=== PATIENT | female | born 1970 | race African-American/Black ===

== ENCOUNTER 2025-07-13 09:55 | Inpatient (IN) | payer SELFPAY ==
[~2025-07-13] VITALS: Ht 167.6 cm; Wt 43.1 kg
[2025-07-13 10:00] VITALS: O2SAT 100
[2025-07-13 10:36] LABS: BASOPHILS % 0.4 % (0.0-2.0); EOSINOPHILS % 0.0 % (0.0-5.0); HEMATOCRIT. 45.9 % (36.0-48.0); HEMOGLOBIN. 15.3 g/dL (12.0-16.0); LYMPHOCYTES % 9.5 % (20.0-50.0); MEAN PLATELET VOLUME 7.3 fl (7.4-10.4); MONOCYTES % 5.6 % (2.0-8.0); NEUTROPHILS % 84.5 % (40.0-76.0); PLATELET 257 x1000/uL (130-400); RED BLOOD CELL COUNT 4.55 mill/uL (4.2-5.4); RED CELL DISTRIBUTION WIDTH 13.7 % (11.6-14.6)
[2025-07-13 10:55] LABS: CREATININE 0.7 mg/dL (0.6-1.0); UREA NITROGEN BLOOD < 5 mg/dL (9-23)
[2025-07-13 10:56] LABS: TROPONIN I HIGH SENSITIVITY 13 ng/L (3.0-34)
[2025-07-13] MEDS: POTASSIUM CHLORIDE 20MEQ/PACKET PO NR (12:30)
[2025-07-13] MEDS ORDERED: ACETAMINOPHEN 325MG TABLET PO PRN ×2 (12:30)
[2025-07-13] MEDS ORDERED: IPRATROPIUM/ALBUTEROL 0.5-3(2.5)MG/3ML NEB HHN PRN (12:30)
[2025-07-13] MEDS ORDERED: CLONIDINE 0.1MG TABLET PO PRN (12:30)
[2025-07-13 12:59] LABS: PHOSPHORUS 3.6 mg/dL (2.5-4.9)
[2025-07-13 13:08] LABS: FOLIC ACID (FOLATE) SERUM 13.78 ng/mL (>5.38); VITAMIN B12 SERUM 781 pg/mL (211-911)
[2025-07-13] MEDS: BLOOD SUGAR DIAGNOSTIC STRIP TEST SCH (13:39)
[2025-07-13] MEDS: SODIUM CHLORIDE 0.9% 1,000 ML IV ONE (13:40)
[2025-07-13] MEDS: ONDANSETRON HCL 4MG/2ML INJ IV PRN (14:44)
[2025-07-13 15:00] VITALS: BP 144/89; PULSE 108; RESP 18; TEMP 36.4736
[2025-07-13 15:02] LABS: LACTATE DEHYDROGENASE 273.0 IU/L (120-246)
[2025-07-13 15:43] LABS: HEPATITIS A AB IGM NEGATIVE (Negative)
[2025-07-13 15:44] LABS: HEPATITIS B CORE AB IGM NEGATIVE (Negative); HEPATITIS C AB NON REACTIVE (Neg) (Negative)
[2025-07-13 16:00] VITALS: BP 108/75; PULSE 94; RESP 18; TEMP 36.5; O2SAT 100
[2025-07-13] MEDS: MAGNESIUM 4 G PREMIX 100 ML IV ONE (16:00)
[2025-07-13] MEDS: POTASSIUM CHLORIDE 20MEQ/PACKET PO SCH (17:27)
[2025-07-13 20:00] VITALS: BP 137/87; PULSE 84; RESP 20; TEMP 36.3; O2SAT 100
[2025-07-13] MEDS: AMLODIPINE 5MG TABLET PO SCH (20:41)
[2025-07-13 22:13] LABS: INR 1.0
[2025-07-13 22:19] LABS: TROPONIN I HIGH SENSITIVITY 20 ng/L (3.0-34)
[2025-07-14] VITALS (7 sets, daily range): BP systolic 112–138; BP diastolic 73–87; PULSE 74–94; RESP 18–20; TEMP 36.2–37.3; O2SAT 96–100
[2025-07-14 07:37] LABS: BASOPHILS % 0.4 % (0.0-2.0); EOSINOPHILS % 0.0 % (0.0-5.0); HEMATOCRIT. 46.9 % (36.0-48.0); HEMOGLOBIN. 16.1 g/dL (12.0-16.0); LYMPHOCYTES % 17.1 % (20.0-50.0); MEAN PLATELET VOLUME 7.6 fl (7.4-10.4); MONOCYTES % 4.7 % (2.0-8.0); NEUTROPHILS % 77.8 % (40.0-76.0); PLATELET 266 x1000/uL (130-400); RED BLOOD CELL COUNT 4.74 mill/uL (4.2-5.4); RED CELL DISTRIBUTION WIDTH 13.6 % (11.6-14.6)
[2025-07-14 07:52] LABS: CREATININE 0.7 mg/dL (0.6-1.0); LACTATE DEHYDROGENASE 231 IU/L (120-246); TRIGLYCERIDE 87 mg/dL (0-150); UREA NITROGEN BLOOD < 5 mg/dL (9-23)
[2025-07-14 07:53] LABS: LDL CHOLESTEROL 35 mg/dL (5-100)
[2025-07-14 07:54] LABS: ASPARTATE AMINOTRANSFERASE 119 IU/L (<34); BILIRUBIN DIRECT 0.3 mg/dL (<=3.0); BILIRUBIN TOTAL 0.7 mg/dL (0.1-1.0); PROTEIN TOTAL 6.3 g/dL (6.0-8.3)
[2025-07-14 07:56] LABS: T4 FREE 0.84 ng/dL (0.89-1.76)
[2025-07-14] MEDS: DEXTROSE 50% WATER 50ML SYRINGE IV PRN (08:00)
[2025-07-14] MEDS: POTASSIUM CHLORIDE 20MEQ TABLET SR PO NR (09:13)
[2025-07-14] MEDS ORDERED: KCL 20MEQ/100ML PREMIX 100 ML IV SCH (10:00)
[2025-07-14] MEDS: DEXT 5%/0.45% NACL 1000ML 1,000 ML IV SCH (10:20)
[2025-07-14] MEDS: KCL 20MEQ/100ML PREMIX 100 ML IV SCH (10:20)
[2025-07-14] MEDS ORDERED: DIATR MEGLU/DIATRIZOATE SOLN 30ML PO SCH (12:15)
[2025-07-14] MEDS ORDERED: MAGNESIUM 2 G PREMIX 50 ML IV ONE (12:15)
[2025-07-14 12:20] LABS: CLARITY URINE CLEAR (CLEAR); COLOR URINE YELLOW (YELLOW); GLUCOSE URINE TRACE (NEGATIVE); KETONES URINE 3+ (NEGATIVE); LEUKOCYTE ESTERASE URINE NEGATIVE (NEGATIVE); NITRITE URINE POSITIVE (NEGATIVE); OCCULT BLOOD URINE NEGATIVE (NEGATIVE); PH URINE 5.5 (4.5-8.0); PROTEIN URINE TRACE (NEGATIVE); SPECIFIC GRAVITY URINE 1.019 (1.005-1.030); UROBILINOGEN URINE 0.2 E.U./dL (0.2-1.0)
[2025-07-14 12:29] LABS: RBC URINE 0-2 /hpf (0-2); SQUAMOUS EPITHELIAL CELL URINE 1+ /lpf (RARE/1+)
[2025-07-14 12:30] LABS: BACTERIA URINE 3+; YEAST URINE NONE SEEN
[2025-07-14] MEDS ORDERED: ENOXAPARIN 40MG/0.4ML SYR SUBCUT SCH (13:00)
[2025-07-14] MEDS: ENOXAPARIN 30MG/0.3ML SYR SUBCUT SCH (13:30)
[2025-07-14 15:19] LABS: *AMPHETAMINES SCREEN URINE NEGATIVE (NEGATIVE); *BARBITURATES SCREEN URINE NEGATIVE (NEGATIVE); *BENZODIAZEPINES SCREEN URINE NEGATIVE (NEGATIVE); *COCAINE SCREEN URINE NEGATIVE (NEGATIVE); METHADONE URINE SCREEN NEGATIVE (NEGATIVE); OPIATES URINE SCREEN NEGATIVE (NEGATIVE)
[2025-07-14 15:20] LABS: CANNABINOID URINE SCREEN PRESUMPTIVE POSITIVE (NEGATIVE); ECSTASY MDMA SCREEN URINE NEGATIVE (NEGATIVE); PHENCYCLIDINE URINE SCREEN NEGATIVE (NEGATIVE)
[2025-07-14] MEDS: DIATR MEGLU/DIATRIZOATE SOLN 30ML PO NR (16:43)
[2025-07-14] MEDS: PIPERACILLIN/TAZO 3.375G/50ML 50 ML IV SCH (20:41)
[2025-07-14 22:36] LABS: CREATININE 0.8 mg/dL (0.6-1.0)
[2025-07-14 22:37] LABS: UREA NITROGEN BLOOD 6 mg/dL (9-23)
[2025-07-14 22:39] LABS: PHOSPHORUS 2.8 mg/dL (2.5-4.9)
[2025-07-15] VITALS: BP 122/87; PULSE 84; RESP 18; TEMP 36.5; O2SAT 99
[2025-07-15] MEDS: POTASSIUM CHLORIDE 20MEQ/PACKET PO NR (01:43)
[2025-07-15 04:00] VITALS: BP 124/74; PULSE 73; RESP 18; TEMP 36.5; O2SAT 97
[2025-07-15 05:13] LABS: ALPHA FETOPROTEIN TUMOR MARKER 3.0 ng/mL (0.0-9.2); CA 19-9 < 2 U/mL (0-35); CANCER ANTIGEN 125 42.6 U/mL (0.0-38.1); CARCINOEMBRYONIC AG - SEND OUT 10.9 ng/mL (0.0-4.7)
[2025-07-15] MEDS ORDERED: POTASSIUM CHLORIDE 40 MEQ in DEXT 5% WATER 230 ML IV ONE (07:30)
[2025-07-15 08:00] VITALS: BP 135/51; PULSE 71; RESP 20; TEMP 36.7; O2SAT 98
[2025-07-15 08:13] LABS: PLATELET 235 x1000/uL (130-400); RED BLOOD CELL COUNT 4.43 mill/uL (4.2-5.4); RED CELL DISTRIBUTION WIDTH 12.9 % (11.6-14.6)
[2025-07-15] MEDS: KCL 20MEQ/100ML X 2 FOR TOTAL KCL 40MEQ/200ML IV SCH (08:29)
[2025-07-15 08:42] LABS: CREATININE 0.9 mg/dL (0.6-1.0); UREA NITROGEN BLOOD 5 mg/dL (9-23)
[2025-07-15 12:00] VITALS: BP 127/61; PULSE 68; RESP 18; TEMP 36.6; O2SAT 97
[2025-07-15] MEDS ORDERED: AMLO2.5T45 MT (13:47)
[2025-07-15] MEDS ORDERED: SULF1TAB48 MT (14:00)
[2025-07-15 14:29] VITALS: BP 125/75; PULSE 76; RESP 12; TEMP 97.9
[2025-07-15 16:00] VITALS: BP 132/68; PULSE 69; RESP 17; TEMP 36.7; O2SAT 98
== END 2025-07-15 16:30 | disposition home or self-care (01) | DRG 204 ==
LOC: ER 10:03 → 8WST 11:55 → EDBEDREQTM 11:58 → EDBEDREQ 11:58 → ENRESERV 13:47
PROVIDERS: ADMIT Internal Medicine; ATTEND Internal Medicine
DX: R55 Syncope and collapse (principal); R64 Cachexia; E43 Unspecified severe protein-calorie malnutrition; E83.42 Hypomagnesemia; E87.6 Hypokalemia; F17.200 Nicotine dependence, unspecified, uncomplicated; I10 Essential (primary) hypertension; I49.1 Atrial premature depolarization; R73.9 Hyperglycemia, unspecified; R41.82 Altered mental status, unspecified; Z68.1 Body mass index [BMI] 19.9 or less, adult; Z85.028 Personal history of other malignant neoplasm of stomach
CPT/HCPCS: 36415; 71045; 74176; 80048; 80061; 80076; 80305; 81003; 82040; 82105; 82378; 82607; 82728; 82746; 82962; 83036; 83540; 83550; 83605; 83615; 83735; 83880; 83930; 84100; 84145; 84439; 84443; 84484; 85025; 85027; 85044; 85651; 86038; 86300; 86301; 86304; 86705; 86709; 87340; 93005; 93306; 99285; J2405; J2543; J3475; J3480; Q9963